=== PATIENT | male | born 1970 | race Caucasian/White ===

== ENCOUNTER 2017-06-23 09:06 | Emergency (ER) | payer OTHER ==
[~2017-06-23] VITALS: Ht 170.2 cm; Wt 108.9 kg
--- NOTE | 2017-06-23 09:06 | NUR ---
RIGHT UPPER THIGH ABSCESS X 4 DAYS. NAD NOTED. PT AAO X4, AMB WITH STEADY GAIT. RR EVEN AND UNLABORED. MD AT BEDSIDE FOR EVAL. PT PLACED IN GOWN.
[2017-06-23] MEDS ORDERED: LIDOCAINE HCL/PF 1% 30 ML SDV ONE (09:54)
[2017-06-23 10:26] VITALS: BP 110/87
--- NOTE | 2017-06-23 10:32 | NUR ---
PT. VERBALIZED UNDERSTANDING OF AFTERCARE INSTRUCTIONS.Patient discharged to home in stable condition. Written and verbal after care instructions given. Patient verbalizes understanding of instruction.
== END 2017-06-23 10:32 | disposition home or self-care (01) ==
LOC: ER 09:11
DX: L02.415 Cutaneous abscess of right lower limb (principal); L03.115 Cellulitis of right lower limb; F17.200 Nicotine dependence, unspecified, uncomplicated
CPT/HCPCS: 10060; 99284; A4606; A6402; J3490; Z7610

== ENCOUNTER 2017-08-29 08:18 | Emergency (ER) | payer OTHER ==
[~2017-08-29] VITALS: Ht 172.7 cm; Wt 113.4 kg
[2017-08-29] MEDS ORDERED: HYDROCODONE/APAP 5/325MG 1 EACH TABLET ONE (08:58)
[2017-08-29] MEDS ORDERED: LIDOCAINE 1%-EPI 1:100,000 20 ML VIAL TP ONE (09:00)
[2017-08-29] MEDS ORDERED: HYDROCODONE/APAP 5/325MG 1 EACH TABLET PO ONE (09:00)
[2017-08-29] MEDS ORDERED: SULFAMETH/TRIMETH 800/160 MG 1 UDTAB TABLET PO ONE ×2 (09:30→10:13)
[2017-08-29] MEDS ORDERED: LIDOCAINE /MPF 1% VIAL 5 ML VIAL ONE (09:48)
[2017-08-29] MEDS ORDERED: KETOROLAC TROMETHAMINE INJ 30 MG/ML VIAL ONE (10:16)
[2017-08-29] MEDS ORDERED: KETOROLAC TROMETHAMINE INJ 60 MG/2 ML VIAL IM ONE (10:30)
[2017-08-29] MEDS ORDERED: LIDOCAINE 1% INJ 50 ML MDV IJ ONE (11:28)
[2017-08-29 11:48] VITALS: BP 142/87
== END 2017-08-29 11:51 | disposition home or self-care (01) ==
LOC: ER 08:20
DX: N49.2 Inflammatory disorders of scrotum (principal); E11.9 Type 2 diabetes mellitus without complications; E66.9 Obesity, unspecified; F17.200 Nicotine dependence, unspecified, uncomplicated; Z79.84 Long term (current) use of oral hypoglycemic drugs
CPT/HCPCS: 55100; 76870; 82962; 96372; 99284; 99406; A4606; A6402; J1885; J3490 ×2; Z7610

== ENCOUNTER 2017-11-08 19:57 | Emergency (ER) | payer OTHER ==
[~2017-11-08] VITALS: Ht 175.3 cm; Wt 99.8 kg
--- NOTE | 2017-11-08 20:50 | NUR ---
"BLOOD IN URINE X3 TODAY" NAD NOTED, VSS, RESP EVEN AND UNLABORED, PT PUT ON MONITOR AND , WAITING FOR MD KHUSHBU.
[2017-11-08 20:59] LABS: APPEARANCE,URINE Other (CLEAR); BILIRUBIN,URINE SMALL (NEGATIVE); BLOOD, URINE Large Ery/uL (NEGATIVE); COLOR,URINE Other (YELLOW); KETONES,URINE Trace (NEGATIVE); LEUKOCYTE ESTERASE ,URINE Negative (NEGATIVE); NITRITE, URINE Negative (NEGATIVE); PROTEIN,URINE 100 mg/dl (NEGATIVE); UGLUCOSE 250 MG/DL mg/dL (NEGATIVE)
[2017-11-08 21:04] LABS: BACTERIA,URINE None seen /HPF (None Seen); RBC,URINE TOO NUMEROUS TO COUN /HPF (0-2); SQUAMOUS EPITHELIAL CELL,UR Rare /HPF (None Seen); WBC,URINE NONE SEEN /HPF (0-3)
[2017-11-08 22:12] LABS: BASOPHILS # (AUTO) 0.1 /CMM (0.0-0.2); EOSINOPHILS % (AUTO) 1.5 % (0.0-6.0); HEMATOCRIT 41 % (39-51); HEMOGLOBIN 14.1 g/dL (13.5-17.5); LYMPHOCYTES # (AUTO) 3.1 /CMM (0.8-4.8); LYMPHOCYTES % (AUTO) 29.7 % (20.0-44.0); MEAN CORPUSCULAR HGB CONC 35 g/dl (31.0-36.0); MEAN CORPUSCULAR VOLUME 85 fL (80-96); MONOCYTES # (AUTO) 0.7 /CMM (0.1-1.30); MONOCYTES % (AUTO) 6.8 % (2.0-12.0); NEUTROPHILS # (AUTO) 6.3 /CMM (1.8-8.9); PLATELET COUNT (AUTO) 266 /CMM (150-450); RDW COEFFICIENT OF VARIATION 13.1 (11.5-15.0); RED BLOOD CELL COUNT(AUTO) 4.84 MIL/uL (4.5-6.0); WHITE BLOOD COUNT (AUTO) 10.4 K/uL (4.3-11.0)
[2017-11-08 22:19] LABS: CALCIUM, SERUM 8.6 mg/dL (8.5-10.1); POTASSIUM 3.4 mmol/L (3.5-5.1)
--- NOTE | 2017-11-08 23:26 | NUR ---
RECEIVED REPORT FROM DR. LEOLA POWERS AT BEDSIDE FOR EVAL.
--- NOTE | 2017-11-08 23:34 | NUR ---
PT REFUSED CT. DR. BHAGAT AWARE.
[2017-11-08] MEDS ORDERED: POTASSIUM CHLORIDE 20 MEQ TAB.PRT.SR PO ONE (23:35)
[2017-11-08 23:45] VITALS: BP 157/81
--- NOTE | 2017-11-08 23:47 | NUR ---
Patient discharged to home in stable condition. Written and verbal after care instructions given. Patient verbalizes understanding of instruction AND A COPY OF LABS GIVEN TO PT. PT AMBULATED OUT WITH A STEADY GAIT. PT TO F/U WITH UROLOGY. REFERRAL GIVEN.
--- NOTE | 2017-11-08 23:48 | NUR ---
VSS. RESP EVEN AND UNLABORED. NAD NOTED.
[2017-11-09] MEDS ORDERED: POTASSIUM CHLORIDE 20 MEQ TAB.PRT.SR PO ONE
== END 2017-11-08 23:46 | disposition home or self-care (01) ==
LOC: ER 19:59
DX: R31.0 Gross hematuria (principal); E87.6 Hypokalemia; E11.9 Type 2 diabetes mellitus without complications; F17.200 Nicotine dependence, unspecified, uncomplicated; I10 Essential (primary) hypertension; I25.2 Old myocardial infarction; Z79.02 Long term (current) use of antithrombotics/antiplatelets
CPT/HCPCS: 36415; 80048-TC; 81000-TC; 85025-TC; 85730-TC; A4606; Z7610